=== PATIENT | female | born 1955 | race Caucasian/White ===

== ENCOUNTER 2017-01-30 12:34 | Emergency (ER) | payer OTHER ==
[~2017-01-30] VITALS: Ht 160 cm; Wt 77.6 kg
[2017-01-30 12:43] VITALS: BP 153/72
[2017-01-30] MEDS ORDERED: PREDNISONE20 M1 PO (13:01)
== END 2017-01-30 13:04 ==
LOC: ED 12:34
DX: T63.441A Toxic effect of venom of bees, accidental (unintentional), initial encounter (principal); L25.9 Unspecified contact dermatitis, unspecified cause; Y92.9 Unspecified place or not applicable

== ENCOUNTER → 2017-02-20 | Outpatient (CLI) | payer OTHER ==
[~2017-02-20] MED LIST: PREDNISONE20 M1 PO
== END | disposition home or self-care (01) ==
LOC: LAB 16:06
DX: E03.9 Hypothyroidism, unspecified (principal)

== ENCOUNTER 2017-05-13 16:26 | Emergency (ER) | payer OTHER ==
[~2017-05-13] VITALS: Wt 77.6 kg
== END 2017-05-13 17:47 | disposition home or self-care (01) ==
LOC: ED 16:26
DX: S01.81XA Laceration without foreign body of other part of head, initial encounter (principal); Z23 Encounter for immunization; Z88.8 Allergy status to other drugs, medicaments and biological substances; W01.198A Fall on same level from slipping, tripping and stumbling with subsequent striking against other object, initial encounter; Y93.89 Activity, other specified; Y92.89 Other specified places as the place of occurrence of the external cause; Y99.8 Other external cause status

== ENCOUNTER 2018-02-28 20:51 | Emergency (ER) | payer OTHER ==
[~2018-02-28] VITALS: Ht 160 cm; Wt 77.6 kg
[2018-02-28 20:53] VITALS: BP 163/69
== END 2018-02-28 23:30 | disposition home or self-care (01) ==
LOC: ED 20:51
DX: S66.811A Strain of other specified muscles, fascia and tendons at wrist and hand level, right hand, initial encounter (principal); W18.09XA Striking against other object with subsequent fall, initial encounter; Y93.89 Activity, other specified; Y92.89 Other specified places as the place of occurrence of the external cause; Y99.8 Other external cause status

== ENCOUNTER 2019-04-06 17:23 | Inpatient (IN) | payer OTHER ==
[~2019-04-06] VITALS: Ht 160 cm; Wt 79.9 kg
--- NOTE | ~2019-04-06 | ST ---
[place], [place] EXERCISE STRESS TEST REPORT NAME: ARA BONE UNIT #: [id number] ROOM: 529 DOCTOR: JEFFERY CONNELL MD BIRTHDATE: [birth year] DOS: 04/07/2019 LEXISCAN STRESS EKG REFERRING PHYSICIAN: Dr. Mejía. INDICATION: Chest pain. The patient underwent standard protocol Lexiscan stress EKG. This was converted stress Lexiscan after the patient had limiting chest pain and dyspnea, prompting us to switch over to perfusion scan imaging. The patient also was noted to have EKG changes on her exercise treadmill stress test. The patient's baseline EKG is normal sinus with nonspecific ST-T wave changes. The patient's baseline heart rate was 67 with a blood pressure of 128/82. The patient's peak heart rate was 110 with a blood pressure 130/74. The patient had chest pain with ambulation. The patient had some nonspecific ST depressions. The patient had no arrhythmias. SUMMARY OF FINDINGS: Nonspecifically abnormal Lexiscan stress EKG suggestive of ischemia with symptoms and ST depressions. Please see perfusion scan results for further results on imaging portion. JEFFERY CONNELL MD CM:STRESS:EXERCISE STRESS TEST REPORT [id number] JEFFERY CONNELL MD
--- NOTE | ~2019-04-06 | EKG ---
[place], [place] ELECTROCARDIOGRAM REPORT NAME: ARA BONE UNIT #: [id number] ROOM: 529 DOCTOR: AMBREEN DRAFT REPORT BIRTHDATE: [birth year] [facility] Test Date: 2019-04-06 Test Time: 17:29:22 Pat Name: ARA BONE Department: Room: 529 Gender: F Tire Inspector: : 1955 Requested By: RUTH ANN FOX Order Number: [id number] Reading MD: Mitchell Styles MD Measurements Intervals [place] Rate: 60 P: 46 MN: 143 QRS: 58 QRSD: 104 T: 127 QT: 455 QTc: 455 Interpretive Statements Sinus rhythm Abnrm T, consider ischemia, anterolateral lds Compared to ECG 08/11/2018 21:34:32 Possible ischemia now present T-wave abnormality no longer present Electronically Signed On 04-07-2019 8:09:06 PST by Mitchell Styles MD CM:EKGRPT:ELECTROCARDIOGRAM REPORT [id number] RUTH ANN DUVAL DRAFT REPORT RUTH ANN FOX DO
--- NOTE | ~2019-04-06 | EKG ---
[place], [place] ELECTROCARDIOGRAM REPORT NAME: ARA BONE UNIT #: [id number] ROOM: 529 DOCTOR: AMBREEN DRAFT REPORT BIRTHDATE: [birth year] [facility] Test Date: 2019-04-06 Test Time: 20:06:00 Pat Name: ARA BONE Department: Room: 529 Gender: F Manager Case: : 1955 Requested By: RUTH ANN FOX Order Number: [id number] Reading MD: Mitchell Styles MD Measurements Intervals [place] Rate: 57 P: 13 NE: 150 QRS: 35 QRSD: 96 T: 129 QT: 505 QTc: 492 Interpretive Statements Sinus rhythm Abnrm T, consider ischemia, anterolateral lds Compared to ECG 08/11/2018 21:34:32 Possible ischemia now present T-wave abnormality no longer present Electronically Signed On 04-07-2019 8:09:34 PST by Mitchell Styles MD CM:EKGRPT:ELECTROCARDIOGRAM REPORT 05 08 RUTH ANN DUVAL DRAFT REPORT RUTH ANN FOX DO
--- NOTE | ~2019-04-06 | EKG ---
[place], [place] ELECTROCARDIOGRAM REPORT NAME: ARA BONE UNIT #: [id number] ROOM: 529 DOCTOR: AMBREEN DRAFT REPORT BIRTHDATE: [birth year] [facility] Test Date: 2019-04-06 Test Time: 23:20:38 Pat Name: ARA BONE Department: Room: 529 Gender: F Counsellors: SS RESP : 1955 Requested By: RUTH ANN FOX Order Number: [id number] Reading MD: Mitchell Styles MD Measurements Intervals [place] Rate: 66 P: 34 NE: 140 QRS: 72 QRSD: 106 T: 129 QT: 501 QTc: 525 Interpretive Statements Sinus rhythm Abnrm T, probable ischemia, anterolateral lds Prolonged QT interval Compared to ECG 08/11/2018 21:34:32 Possible ischemia now present Prolonged QT interval now present T-wave abnormality no longer present Electronically Signed On 04-07-2019 8:09:57 PST by Mitchell Styles MD CM:EKGRPT:ELECTROCARDIOGRAM REPORT [id number] RUTH ANN DUVAL DRAFT REPORT RUTH ANN FOX DO
[2019-04-06 17:23] VITALS: BP 179/79
[2019-04-06 17:46] LABS: BASO # 0.1 10*3/uL (0.0-0.1); BASO % 0.7 % (0.0-1.0); EOS # 0.2 10*3/uL (0.0-0.4); EOS % 2.3 % (1.0-4.0); HEMATOCRIT 41.4 % (37.0-47.0); HEMOGLOBIN 13.6 g/dl (12.0-16.0); LYMPH # 3.8 10*3/uL (1.3-4.4); LYMPH % 39.4 % (27.0-41.0); MEAN CELL VOLUME 96.3 fl (81.0-99.0); MEAN CORPUSCULAR HGB 31.6 pg (27.0-31.0); MEAN CORPUSCULAR HGB CONC 32.9 g/dl (33.0-37.0); MEAN PLATELET VOLUME 9.7 fl (9.6-12.3); MONO # 0.7 10*3/uL (0.1-1.0); MONO % 6.7 % (3.0-9.0); NEUT # 4.9 10*3/uL (2.3-7.9); NEUT % 50.5 % (47.0-73.0); PLATELET COUNT AUTOMATED 260 10*3/uL (130-400); RED CELL DISTRI WIDTH 12.4 % (0-14.5); WHITE BLOOD COUNT 9.7 10*3/uL (4.8-10.8)
[2019-04-06 18:03] LABS: LIPASE 160 U/L (73-393)
[2019-04-06 18:04] LABS: ACT PARTIAL THROMBO TIME 23.6 SECONDS (20.0-32.1); ALBUMIN 4.1 gm/dl (3.1-4.5); ALKALINE PHOSPHATASE 49 U/L (45-117); BUN 16 mg/dl (7-24); CHLORIDE 111 mmol/L (98-107); CREATININE 0.88 mg/dL (0.55-1.02); INTERNATIONAL NORM RATIO 0.9 (2.0-3.5); POTASSIUM 4.1 mmol/L (3.5-5.1); SGOT/AST 39 IU/L (3-35); SGPT/ALT 49 U/L (12-78); SODIUM 141 mmol/L (136-145); TOTAL PROTEIN 7.5 gm/dL (6.4-8.2)
[2019-04-06 18:05] VITALS: BP 174/91
[2019-04-06 18:06] LABS: TROPONIN I < 0.015 ng/ml (<0.045)
[2019-04-06 18:26] VITALS: BP 178/82
[2019-04-06 18:53] VITALS: BP 168/78
[2019-04-06 20:15] VITALS: BP 188/90
--- NOTE | 2019-04-06 20:15 | NUR ---
A 63, admitted to , under the services of JAGRUTI Hooper DO with a diagnosis of CHEST PAIN, ABNORMAL EKG. Chief complaint is ACUTE PAIN. Patient arrived via stretcher from ER. Monitor applied. Initial assessment completed. Vital signs taken and recorded. JAGRUTI HOOPER DO notified of admission to the unit. Orders received. See assessment for past medical history, medications and allergies. Patient and/or family oriented to unit. [facility] visitation policy reviewed. Clothing/patient valuable form completed. WANDA BARRERA
--- NOTE | 2019-04-06 20:50 | NUR ---
PATIENT STATES THAT SHE HAS MEDICATION FILLED AT [facility] IN [facility] OVER A YEAR AGO. PATIENT STATES THAT SHE HAS NOT TAKEN THESE MEDICATION BUT RECENTLY BEGAN TAKING THEM ON THURSDAY. CALLED [facility]- PHARMACIST STATES THAT PATIENT HAS NEVER HAD MEDICATION FILLED THERE. DR HONG CALLED AND AWARE.
[2019-04-07] VITALS: BP 138/60
--- NOTE | 2019-04-07 04:35 | NUR ---
24 HR chart check completed.
--- NOTE | 2019-04-07 04:45 | NUR ---
PATIENT RESTING WITH EYES CLOSED. RESPIRATIONS EASY AND UNLABORED.CALL LIGHT WITHIN REACH. WILL MONITOR.
[2019-04-07 06:45] LABS: CHOLESTEROL 256 mg/dL (<200); HDL CHOLESTEROL 26 mg/dl (40-60); TRIGLYCERIDES 432 mg/dl (<150)
--- NOTE | 2019-04-07 07:40 | NUR ---
Npo for stress test today. Lungs clear throughout. Denies sob. Denies chest pain. BP was 148/92. NSR on CM. HR 60.
[2019-04-07 08:00] VITALS: BP 148/92
--- NOTE | 2019-04-07 11:00 | NUR ---
INFORMED CONSENT OBTAINED FOR EXERCISE CARDIOLITE STRESS TEST WITH DR. CONNELL RESTING EKG NSR WITH A RESTING HR OF 67 WITH BP OF 128/82 IN SUPINE POSITION AND HR OF 66 WITH BP OF 124/88 IN STANDING POSITION. HAS T WAVE INVERSIONS IN V1-V5. NO CHEST DISCOMFORT PRIOR TO EXERCISE. IN STAGE II DEVELOPED CENTRAL CHEST DISCOMFORT THAT IS A 4 ON PAIN SCALE AND DEVELOPED ST DEPRESSION IN LEADS II,III,AVF AND V5-V6. ST ELEVATION AVR. AT 1:57 EXERCISE IN STAGE II AT 2.5 MPH AND 12% GRADE PEAK HR 118 WHICH IS 76% OF PREDICTED MAX. DR. CONNELL SWITCHED STRESS TEST TO WALKING LEXISCAN. GRADE REMOVED AND WALKED AT 1.5 MPH. COMPLETED A 1:00 LEXISCAN PROTOCOL RECEIVING LEXISCAN 0.4 MG IV OVER 10 SECONDS WHILE WALKING AT 1.5 MPH. C/O DIZZINESS AND "HOT FLASH" THAT WAS RELIEVED IN RECOVERY. IN RECOVERY AT 3:00 CHEST DISCOMFORT 3 ON PAIN SCALE. AT 8:00 RECOVERY HR OF 88 AND BP OF 132/72 AND CHEST DISCOMFORT RELIEVED. AWAITING SCANNING IN STABLE CONDITION.
--- NOTE | 2019-04-07 11:00 | NUR ---
Hat [employer]ovator in to talk to patient. Patient states lives at home with her mother. There are basement steps in the home. Physician: [facility]: [facility] Home health services: none Patient's level of ADLs: INDEPENDENT Patient has working utilities: yes DME: none Follow-up physician's appointment after d/c: will be made by the hospitalist nurse director upon discharge Does patient want to access PORTAL?: no Discharge plan discussed with patient. She lives at home with her mother. She is independent in her ADLs and ambulation. Discussed home health care services and she alex any home needs at this time. When medically stable she will be discharged to home. She states she will drive herself home as she drove herself here. BETTIE BOWMAN
--- NOTE | 2019-04-07 17:40 | NUR ---
Dr. Snow in and examined pt. States pt can go back to [facility]. He discussed case with Dr. Ashraf.
--- NOTE | 2019-04-07 19:59 | NUR ---
PATIENT REQUESTING PAIN MEDICATION FOR HEADACHE. TYLENOL ADMINISTERED PRESCRIBED. WILL MONITOR FOR EFFECTIVENESS.
[2019-04-07 20:00] VITALS: BP 133/72
--- NOTE | 2019-04-07 20:59 | NUR ---
PATIENT STATES THAT TYLENOL WAS EFFECTIVE FOR PAIN. WILL MONITOR.
[2019-04-08] VITALS: BP 122/64
[2019-04-08] MEDS ORDERED: LISINOPRIL20 MG PO (02:59)
[2019-04-08] MEDS ORDERED: ASPIRIN ADULT L81 M2 PO (02:59)
[2019-04-08] MEDS ORDERED: ATORVASTATIN CA20 M1 PO (02:59)
[2019-04-08] MEDS ORDERED: METOPROLOL SUCC50 M1 PO (02:59)
[2019-04-08 06:22] LABS: BASO % 0.4 % (0.0-1.0); EOS # 0.2 10*3/uL (0.0-0.4); EOS % 2.2 % (1.0-4.0); HEMATOCRIT 37.8 % (37.0-47.0); HEMOGLOBIN 12.5 g/dl (12.0-16.0); LYMPH # 3.7 10*3/uL (1.3-4.4); LYMPH % 37.7 % (27.0-41.0); MEAN CELL VOLUME 95.2 fl (81.0-99.0); MEAN CORPUSCULAR HGB 31.5 pg (27.0-31.0); MEAN CORPUSCULAR HGB CONC 33.1 g/dl (33.0-37.0); MEAN PLATELET VOLUME 9.8 fl (9.6-12.3); MONO # 0.7 10*3/uL (0.1-1.0); MONO % 6.7 % (3.0-9.0); NEUT # 5.1 10*3/uL (2.3-7.9); NEUT % 52.6 % (47.0-73.0); PLATELET COUNT AUTOMATED 252 10*3/uL (130-400); RED BLOOD COUNT 3.97 10*6/uL (4.10-5.10); RED CELL DISTRI WIDTH 12.5 % (0-14.5); WHITE BLOOD COUNT 9.7 10*3/uL (4.8-10.8)
[2019-04-08 06:38] LABS: ALBUMIN 3.5 gm/dl (3.1-4.5); BUN 16 mg/dl (7-24); CHLORIDE 108 mmol/L (98-107); CREATININE 0.82 mg/dL (0.55-1.02); SGOT/AST 23 IU/L (3-35); SGPT/ALT 40 U/L (12-78); SODIUM 140 mmol/L (136-145); TOTAL PROTEIN 6.4 gm/dL (6.4-8.2)
[2019-04-08 06:39] LABS: ALKALINE PHOSPHATASE 43 U/L (45-117)
[2019-04-08 08:00] VITALS: BP 136/70
--- NOTE | 2019-04-08 09:40 | NUR ---
PATIENT TRANSFERRED TO [facility] VARNISHER APPRENTICE VIA [facility]. TRANSFER PACKET SENT WITH PATIENT. ALL PERSONAL BELONGINGS SENT WITH PATIENT. REPORT GIVEN TO VARNISHER APPRENTICE.
== END 2019-04-08 09:40 | disposition short-term general hospital (02) | DRG 311 ==
LOC: ED 17:23 → EDHOLD 18:15 → 5E 18:15
PROVIDERS: Emergency Medicine; Internal Medicine; Student in an Organized Health Care Education/Training Program; ADMIT Internal Medicine
PROC: 3E073KZ Introduction of Other Diagnostic Substance into Coronary Artery, Percutaneous Approach (ICD-10-PCS; principal; 2019-04-07)
PROC: 4A02XM4 Measurement of Cardiac Total Activity, External Approach (ICD-10-PCS; principal; 2019-04-07)
DX: I20.9 Angina pectoris, unspecified (principal); I25.9 Chronic ischemic heart disease, unspecified; E66.9 Obesity, unspecified; E87.8 Other disorders of electrolyte and fluid balance, not elsewhere classified; I10 Essential (primary) hypertension; Z82.49 Family history of ischemic heart disease and other diseases of the circulatory system; Z91.048 Other nonmedicinal substance allergy status; Z68.31 Body mass index [BMI] 31.0-31.9, adult

== ENCOUNTER 2019-05-20 20:36 | Emergency (ER) | payer OTHER ==
[~2019-05-20] VITALS: Ht 160 cm; Wt 79.8 kg
[~2019-05-20 20:36] MED LIST changes: +ASPIRIN ADULT L81 M2 PO; +ATORVASTATIN CA20 M1 PO; +LISINOPRIL20 MG PO; +METOPROLOL SUCC50 M1 PO
[2019-05-20 20:38] VITALS: BP 178/69
== END 2019-05-20 22:20 | disposition home or self-care (01) ==
LOC: ED 20:36
DX: S60.222A Contusion of left hand, initial encounter (principal); I10 Essential (primary) hypertension; E78.00 Pure hypercholesterolemia, unspecified; Z91.048 Other nonmedicinal substance allergy status; Z79.899 Other long term (current) drug therapy; Z79.82 Long term (current) use of aspirin; W22.8XXA Striking against or struck by other objects, initial encounter; Y93.H2 Activity, gardening and landscaping; Y92.098 Other place in other non-institutional residence as the place of occurrence of the external cause; Y99.8 Other external cause status

== ENCOUNTER 2020-09-04 17:12 | Emergency (ER) | payer OTHER ==
[~2020-09-04] VITALS: Ht 160 cm; Wt 79.8 kg
[2020-09-04 17:28] VITALS: BP 175/73
== END 2020-09-04 17:49 | disposition home or self-care (01) ==
LOC: ED 17:12
DX: M25.561 Pain in right knee (principal); I10 Essential (primary) hypertension; E78.00 Pure hypercholesterolemia, unspecified; Z79.899 Other long term (current) drug therapy; Z98.890 Other specified postprocedural states

== ENCOUNTER 2022-02-03 17:39 | Emergency (ER) | payer OTHER ==
[~2022-02-03] VITALS: Ht 162.5 cm; Wt 77.6 kg
[2022-02-03 18:29] VITALS: BP 139/77
== END 2022-02-03 22:02 | disposition home or self-care (01) ==
LOC: ED 17:39
DX: S20.211A Contusion of right front wall of thorax, initial encounter (principal); I10 Essential (primary) hypertension; E66.9 Obesity, unspecified; Z91.048 Other nonmedicinal substance allergy status; Z79.899 Other long term (current) drug therapy; Z79.82 Long term (current) use of aspirin; Z68.30 Body mass index [BMI] 30.0-30.9, adult; X50.1XXA Overexertion from prolonged static or awkward postures, initial encounter; Y93.89 Activity, other specified; Y92.098 Other place in other non-institutional residence as the place of occurrence of the external cause; Y99.8 Other external cause status

== ENCOUNTER 2022-03-09 14:33 | Emergency (ER) | payer OTHER ==
[~2022-03-09] VITALS: Wt 72.6 kg
[2022-03-09 15:59] VITALS: BP 161/80
[2022-03-09] MEDS ORDERED: MELOXICAM7.5 MG PO (17:18)
== END 2022-03-09 17:43 | disposition home or self-care (01) ==
LOC: ED 14:33
DX: S93.401A Sprain of unspecified ligament of right ankle, initial encounter (principal); W18.39XA Other fall on same level, initial encounter; Y93.89 Activity, other specified; Y92.89 Other specified places as the place of occurrence of the external cause; Y99.8 Other external cause status

== ENCOUNTER → 2023-01-15 | Outpatient (CLI) | payer OTHER ==
[~2023-01-15] MED LIST changes: +MELOXICAM7.5 MG PO
[2023-01-15 13:26] LABS: BUN 10 mg/dl (9-23)
== END | disposition home or self-care (01) ==
LOC: MRI 11:00 → LAB 11:09
PROVIDERS: ATTEND Physician Assistant
DX: M47.816 Spondylosis without myelopathy or radiculopathy, lumbar region (principal); M48.061 Spinal stenosis, lumbar region without neurogenic claudication; D49.2 Neoplasm of unspecified behavior of bone, soft tissue, and skin; M51.36 Other intervertebral disc degeneration, lumbar region; M43.16 Spondylolisthesis, lumbar region

== ENCOUNTER 2023-01-20 19:56 | Emergency (ER) | payer OTHER, MEDICAID ==
[~2023-01-20] VITALS: Ht 160 cm; Wt 77.6 kg
[2023-01-20 20:13] VITALS: BP 174/70
[2023-01-20] MEDS ORDERED: PREDNISONE20 M1 PO (21:09)
== END 2023-01-20 21:18 | disposition home or self-care (01) ==
LOC: ED 19:56
DX: T78.40XA Allergy, unspecified, initial encounter (principal); I10 Essential (primary) hypertension; E78.00 Pure hypercholesterolemia, unspecified; Z88.8 Allergy status to other drugs, medicaments and biological substances; Z98.890 Other specified postprocedural states; X58.XXXA Exposure to other specified factors, initial encounter

== ENCOUNTER 2023-07-17 15:47 | Emergency (ER) | payer OTHER, MEDICAID ==
[~2023-07-17] VITALS: Ht 162.5 cm; Wt 77.6 kg
[2023-07-17 16:02] VITALS: BP 124/74
[2023-07-17 18:42] LABS: BASO % 0.5 % (0.0-1.0); EOS # 0.2 10*3/uL (0.0-0.4); EOS % 2.2 % (1.0-4.0); HEMATOCRIT 42.5 % (37.0-47.0); LYMPH # 2.9 10*3/uL (1.3-4.4); MEAN CELL VOLUME 95.1 fl (81.0-99.0); MEAN CORPUSCULAR HGB 30.4 pg (27.0-31.0); MEAN PLATELET VOLUME 9.5 fl (9.6-12.3); MONO # 0.5 10*3/uL (0.1-1.0); NEUT # 3.7 10*3/uL (2.3-7.9); PLATELET COUNT AUTOMATED 255 10*3/uL (130-400); RED BLOOD COUNT 4.47 10*6/uL (4.10-5.10); RED CELL DISTRI WIDTH 12.2 % (0-14.5); WHITE BLOOD COUNT 7.3 10*3/uL (4.8-10.8)
[2023-07-17 18:48] LABS: BILIRUBIN Negative (Negative); BLOOD Trace-Lysed (Negative); CLARITY Cloudy (Clear); COLOR Yellow (Yellow); GLUCOSE Negative (Negative); KETONE Negative (Negative); LEUKO ESTERASE 3+ (Negative); NITRITE Negative (Negative); PH 5.5 (4.5-8.0); SPECIFIC GRAVITY 1.015 (1.001-1.030); UROBILINOGEN 0.2 E.U./dl (0.0-1.0)
[2023-07-17 18:55] LABS: BACTERIA 1+; MUCOUS 1+; WBC 31-40 wbc/hpf (0-5)
[2023-07-17 19:05] LABS: ALKALINE PHOSPHATASE 60 U/L (46-116); BUN 15 mg/dl (9-23); CHLORIDE 108 mmol/L (98-107); LIPASE 36 U/L (12-53); POTASSIUM 4.8 mmol/L (3.4-5.1); SGPT/ALT 16 U/L (5-49); TOTAL PROTEIN 7.1 gm/dL (6.0-8.0)
[2023-07-17] MEDS ORDERED: Ceftriaxone Sodium 1 GM/10 ML SYR IV ONE (19:05)
[2023-07-17] MEDS ORDERED: IOHEXOL 300 MG/ML 100 ML VIAL IV ONE (19:30)
[2023-07-17] MEDS ORDERED: VIBRAMYCIN100 MG PO (21:18)
== END 2023-07-17 21:25 | disposition home or self-care (01) ==
LOC: ED 15:47
PROVIDERS: Nurse Practitioner
DX: N39.0 Urinary tract infection, site not specified (principal); K57.32 Diverticulitis of large intestine without perforation or abscess without bleeding; I10 Essential (primary) hypertension; E78.00 Pure hypercholesterolemia, unspecified; M79.672 Pain in left foot; Z88.8 Allergy status to other drugs, medicaments and biological substances; Z98.890 Other specified postprocedural states

== ENCOUNTER 2024-03-03 14:58 | Emergency (ER) | payer OTHER ==
[~2024-03-03] VITALS: Ht 160 cm; Wt 74.8 kg
[~2024-03-03 14:58] MED LIST changes: +VIBRAMYCIN100 MG PO
[2024-03-03 15:12] VITALS: BP 180/65
== END 2024-03-03 17:10 | disposition home or self-care (01) ==
LOC: ED 14:58
DX: S20.212A Contusion of left front wall of thorax, initial encounter (principal); I10 Essential (primary) hypertension; E78.00 Pure hypercholesterolemia, unspecified; Z91.041 Radiographic dye allergy status; Z98.890 Other specified postprocedural states; W22.8XXA Striking against or struck by other objects, initial encounter; Y93.01 Activity, walking, marching and hiking; Y92.89 Other specified places as the place of occurrence of the external cause; Y99.8 Other external cause status